=== PATIENT | female | born 1950 | race Caucasian/White ===

== ENCOUNTER 2022-01-19 23:56 | Inpatient (IN) | payer OTHER, MEDICAID ==
[~2022-01-19] VITALS: Ht 165.1 cm; Wt 74.8 kg
[~2022-01-19 23:56] MED LIST: ATOR40TA70 PO; METF-874 MT; METO-411 PO; OMEP20CA14 PO
[2022-01-20] MEDS ORDERED: SODIUM CHLORIDE 0.9% 1,000 ML IV ONE ×2 (00:30→05:00)
[2022-01-20 01:03] LABS: HEMATOCRIT. 35.1 % (36.0-48.0); HEMOGLOBIN. 11.5 g/dL (12.0-16.0); MEAN CORPUSCULAR VOLUME 88.2 fL (81.0-99.0); MEAN PLATELET VOLUME 10.2 fl (7.4-10.4); PLATELET 246 x1000/uL (130-400); RED BLOOD CELL COUNT 3.98 mill/uL (4.2-5.4); RED CELL DISTRIBUTION WIDTH 15.5 % (11.6-14.6)
[2022-01-20 01:12] LABS: CHLORIDE 100 mEq/L (98-107)
[2022-01-20 01:21] LABS: BETA HYDROXYBUTYRATE 0.2 mMol/L (0.0-0.3)
[2022-01-20] MEDS ORDERED: CEFTRIAXONE 1 G PREMIX 50 ML IV ONE (05:45)
[2022-01-20] MEDS ORDERED: MORPHINE SULFATE 4 MG/ML CPJ (NOT FOR IM USE) IV ONE (05:45)
[2022-01-20 05:50] LABS: PLATELET ESTIMATE NORMAL
[2022-01-20 09:09] LABS: CLARITY URINE CLOUDY (CLEAR); COLOR URINE DARK YELLOW (YELLOW); KETONES URINE TRACE (NEGATIVE); LEUKOCYTE ESTERASE URINE 1+ (NEGATIVE); NITRITE URINE POSITIVE (NEGATIVE); OCCULT BLOOD URINE 2+ (NEGATIVE); PH URINE 5.5 (4.5-8.0); PROTEIN URINE 3+ (NEGATIVE); SPECIFIC GRAVITY URINE 1.024 (1.005-1.030)
[2022-01-20] MEDS ORDERED: ONDANSETRON HCL 4MG/2ML INJ IV PRN (11:15)
[2022-01-20] MEDS ORDERED: NALOXONE HCL 0.4MG/ML VIAL IV PRN (11:30)
[2022-01-20] MEDS ORDERED: DEXTROSE 50% WATER 50ML SYRINGE IV PRN (11:45)
[2022-01-20] MEDS: BLOOD SUGAR DIAGNOSTIC STRIP TEST SCH ×3 (11:54→21:00)
[2022-01-20 12:00] VITALS: BP 168/79
[2022-01-20] MEDS: MORPHINE SULFATE 2 MG/ML CPJ (NOT FOR IM USE) IV PRN ×2 (12:03→18:37)
[2022-01-20] MEDS: ENOXAPARIN 40MG/0.4ML SYR SUBCUT SCH (12:04)
[2022-01-20] MEDS: CLONIDINE 0.1MG TABLET PO PRN (12:05)
[2022-01-20] MEDS: INSULIN LISPRO 100 UNITS/ML SUBCUT SCH ×3 (12:24→21:00)
[2022-01-20] MEDS: MEROPENEM 500 MG in SODIUM CHLORIDE 0.9% 50 ML IV SCH ×2 (14:20→22:25)
[2022-01-20 16:00] VITALS: BP 109/69
[2022-01-20] MEDS ORDERED: SITA1TAB2 PO (16:50)
[2022-01-20] MEDS: ACETAMINOPHEN 650MG/20.3ML UDC GT PRN (17:16)
[2022-01-20 17:25] VITALS: BP 168/79
[2022-01-20 20:00] VITALS: BP 108/75
[2022-01-21] VITALS: BP 110/80
[2022-01-21 04:00] VITALS: BP 120/70
[2022-01-21] MEDS: MEROPENEM 500 MG in SODIUM CHLORIDE 0.9% 50 ML IV SCH ×2 (05:26→17:01)
[2022-01-21] MEDS: BLOOD SUGAR DIAGNOSTIC STRIP TEST SCH ×4 (05:27→20:48)
[2022-01-21] MEDS: INSULIN LISPRO 100 UNITS/ML SUBCUT SCH ×4 (07:40→20:48)
[2022-01-21] MEDS: ENOXAPARIN 40MG/0.4ML SYR SUBCUT SCH (11:29)
[2022-01-21] MEDS ORDERED: KETOROLAC 15MG/ML VIAL IV STA (15:05)
[2022-01-21] MEDS: MEROPENEM 1000MG in NORMAL SALINE 100ML IV SCH (16:00)
[2022-01-21] MEDS: PANTOPRAZOLE SODIUM 40 MG/VIAL IV SCH (17:01)
[2022-01-21 17:04] LABS: CHLORIDE 107 mEq/L (98-107)
[2022-01-21 17:05] LABS: HEMATOCRIT. 32.3 % (36.0-48.0); HEMOGLOBIN. 10.7 g/dL (12.0-16.0); MEAN CORPUSCULAR HEMOGLOBIN 29.2 pg (28.0-32.0); MEAN CORPUSCULAR VOLUME 87.9 fL (81.0-99.0); MEAN PLATELET VOLUME 10.6 fl (7.4-10.4); PLATELET 181 x1000/uL (130-400); RED BLOOD CELL COUNT 3.68 mill/uL (4.2-5.4); RED CELL DISTRIBUTION WIDTH 15.7 % (11.6-14.6)
[2022-01-21] MEDS: KETOROLAC 15MG/ML VIAL IV SCH ×2 (17:25→20:56)
[2022-01-21 18:33] LABS: PLATELET ESTIMATE NORMAL
[2022-01-21 20:00] VITALS: BP 128/67
[2022-01-22] VITALS: BP 139/70
[2022-01-22 04:00] VITALS: BP 159/78
[2022-01-22] MEDS: KETOROLAC 15MG/ML VIAL IV SCH ×3 (05:01→21:18)
[2022-01-22] MEDS: MEROPENEM 1000MG in NORMAL SALINE 100ML IV SCH ×2 (05:04→17:37)
[2022-01-22] MEDS: BLOOD SUGAR DIAGNOSTIC STRIP TEST SCH ×4 (05:43→21:00)
[2022-01-22] MEDS: INSULIN LISPRO 100 UNITS/ML SUBCUT SCH ×4 (05:45→21:00)
[2022-01-22] MEDS: PANTOPRAZOLE SODIUM 40 MG/VIAL IV SCH (10:53)
[2022-01-22] MEDS: ACETAMINOPHEN 650MG/20.3ML UDC GT PRN ×2 (10:54→21:28)
[2022-01-22 11:54] LABS: HEMATOCRIT. 31.8 % (36.0-48.0); HEMOGLOBIN. 10.7 g/dL (12.0-16.0); MEAN CORPUSCULAR HEMOGLOBIN 29.1 pg (28.0-32.0); MEAN CORPUSCULAR VOLUME 86.7 fL (81.0-99.0); PLATELET 178 x1000/uL (130-400); RED BLOOD CELL COUNT 3.67 mill/uL (4.2-5.4); RED CELL DISTRIBUTION WIDTH 15.8 % (11.6-14.6)
[2022-01-22] MEDS: ENOXAPARIN 40MG/0.4ML SYR SUBCUT SCH (12:54)
[2022-01-22 13:40] LABS: CHLORIDE 107 mEq/L (98-107)
[2022-01-22 16:42] LABS: PLATELET ESTIMATE NORMAL
[2022-01-22 20:00] VITALS: BP 155/55
[2022-01-23] VITALS: BP 146/66
[2022-01-23 04:00] VITALS: BP 151/43
[2022-01-23] MEDS: MEROPENEM 1000MG in NORMAL SALINE 100ML IV SCH ×2 (05:20→17:15)
[2022-01-23] MEDS: KETOROLAC 15MG/ML VIAL IV SCH ×3 (05:20→21:58)
[2022-01-23] MEDS: BLOOD SUGAR DIAGNOSTIC STRIP TEST SCH ×4 (05:20→20:24)
[2022-01-23] MEDS: INSULIN LISPRO 100 UNITS/ML SUBCUT SCH ×4 (05:21→20:24)
[2022-01-23 07:46] VITALS: BP 122/52
[2022-01-23] MEDS: PANTOPRAZOLE SODIUM 40 MG/VIAL IV SCH (09:26)
[2022-01-23] MEDS: ENOXAPARIN 40MG/0.4ML SYR SUBCUT SCH ×2 (12:00→12:49)
[2022-01-23 12:41] VITALS: BP 153/57
[2022-01-23] MEDS: ACETAMINOPHEN 650MG/20.3ML UDC GT PRN (12:49)
[2022-01-23] MEDS ORDERED: LIDOCAINE HCL 1% 10 MG/ML 10ML VIAL ONE (15:03)
[2022-01-23 16:00] VITALS: BP 110/64
[2022-01-23 16:51] LABS: BASOPHILS % 0.4 % (0.0-2.0); EOSINOPHILS % 1.9 % (0.0-5.0); HEMATOCRIT. 33.2 % (36.0-48.0); HEMOGLOBIN. 11.2 g/dL (12.0-16.0); MEAN CORPUSCULAR HEMOGLOBIN 29.2 pg (28.0-32.0); MEAN CORPUSCULAR VOLUME 86.4 fL (81.0-99.0); MEAN PLATELET VOLUME 9.9 fl (7.4-10.4); MONOCYTES % 7.8 % (2.0-8.0); NEUTROPHILS % 80.9 % (40.0-76.0); PLATELET 252 x1000/uL (130-400); RED BLOOD CELL COUNT 3.84 mill/uL (4.2-5.4); RED CELL DISTRIBUTION WIDTH 15.7 % (11.6-14.6)
[2022-01-23 17:09] LABS: CHLORIDE 106 mEq/L (98-107)
[2022-01-23 20:00] VITALS: BP 139/75
[2022-01-23] MEDS ORDERED: AMIKACIN SULFATE 500 MG in SODIUM CHLORIDE 0.9% 100 ML IV NR (20:00)
[2022-01-23] MEDS ORDERED: POTASSIUM CHLORIDE 20MEQ TABLET SR PO NR (21:00)
[2022-01-24] VITALS: BP 152/54
[2022-01-24 04:00] VITALS: BP 151/74
[2022-01-24] MEDS: MEROPENEM 1000MG in NORMAL SALINE 100ML IV SCH ×2 (05:12→17:43)
[2022-01-24] MEDS: KETOROLAC 15MG/ML VIAL IV SCH ×2 (05:13→13:43)
[2022-01-24] MEDS: BLOOD SUGAR DIAGNOSTIC STRIP TEST SCH ×4 (05:13→21:00)
[2022-01-24] MEDS: INSULIN LISPRO 100 UNITS/ML SUBCUT SCH ×4 (05:45→21:00)
[2022-01-24 08:00] VITALS: BP 148/60
[2022-01-24] MEDS: PANTOPRAZOLE SODIUM 40 MG/VIAL IV SCH (08:45)
[2022-01-24 12:11] VITALS: BP 173/72
[2022-01-24] MEDS: CLONIDINE 0.1MG TABLET PO PRN (13:43)
[2022-01-24 16:00] VITALS: BP 115/60
[2022-01-25] VITALS: BP 140/45
[2022-01-25 04:00] VITALS: BP 111/60
[2022-01-25] MEDS: MEROPENEM 1000MG in NORMAL SALINE 100ML IV SCH ×2 (06:27→18:01)
[2022-01-25] MEDS: INSULIN LISPRO 100 UNITS/ML SUBCUT SCH ×3 (07:40→17:40)
[2022-01-25] MEDS: BLOOD SUGAR DIAGNOSTIC STRIP TEST SCH ×3 (07:47→17:53)
[2022-01-25 08:00] VITALS: BP 153/72
[2022-01-25 08:29] LABS: BASOPHILS % 0.4 % (0.0-2.0); EOSINOPHILS % 3.9 % (0.0-5.0); HEMATOCRIT. 28.3 % (36.0-48.0); HEMOGLOBIN. 9.5 g/dL (12.0-16.0); LYMPHOCYTES % 19.3 % (20.0-50.0); MEAN CORPUSCULAR VOLUME 86.3 fL (81.0-99.0); MEAN PLATELET VOLUME 9.1 fl (7.4-10.4); MONOCYTES % 11.2 % (2.0-8.0); NEUTROPHILS % 65.2 % (40.0-76.0); PLATELET 327 x1000/uL (130-400); RED BLOOD CELL COUNT 3.28 mill/uL (4.2-5.4); RED CELL DISTRIBUTION WIDTH 15.8 % (11.6-14.6)
[2022-01-25 08:46] LABS: CHLORIDE 106 mEq/L (98-107)
[2022-01-25] MEDS: PANTOPRAZOLE SODIUM 40 MG/VIAL IV SCH (09:16)
[2022-01-25 12:00] VITALS: BP 155/65
[2022-01-25] MEDS: ENOXAPARIN 40MG/0.4ML SYR SUBCUT SCH (12:40)
[2022-01-25 16:00] VITALS: BP 179/66
[2022-01-25] MEDS: CLONIDINE 0.1MG TABLET PO PRN (16:38)
[2022-01-25 17:00] VITALS: BP 158/65
[2022-01-26] MEDS ORDERED: FAMOTIDINE 20MG TABLET PO SCH ×2 (09:00)
== END 2022-01-25 19:30 | disposition home health service (06) | DRG 872 ==
LOC: ER 23:56 → 8WST 01-20 05:32 → ENRESERV 01-20 08:37
PROVIDERS: ADMIT Internal Medicine; ATTEND Internal Medicine
PROC: 02HV33Z Insertion of Infusion Device into Superior Vena Cava, Percutaneous Approach (ICD-10-PCS; principal; 2022-01-23)
PROC: B548ZZA Ultrasonography of Superior Vena Cava, Guidance (ICD-10-PCS; 2022-01-23)
PROC: B518ZZA Fluoroscopy of Superior Vena Cava, Guidance (ICD-10-PCS; 2022-01-23)
DX: A41.59 Other Gram-negative sepsis (principal); N12 Tubulo-interstitial nephritis, not specified as acute or chronic; N39.0 Urinary tract infection, site not specified; Z16.12 Extended spectrum beta lactamase (ESBL) resistance; I10 Essential (primary) hypertension; E11.65 Type 2 diabetes mellitus with hyperglycemia; B96.89 Other specified bacterial agents as the cause of diseases classified elsewhere; Z20.822 Contact with and (suspected) exposure to COVID-19; K21.9 Gastro-esophageal reflux disease without esophagitis; E78.00 Pure hypercholesterolemia, unspecified; Z86.19 Personal history of other infectious and parasitic diseases; Z87.442 Personal history of urinary calculi; Z93.6 Other artificial openings of urinary tract status; W01.0XXA Fall on same level from slipping, tripping and stumbling without subsequent striking against object, initial encounter; Y93.89 Activity, other specified; Y92.89 Other specified places as the place of occurrence of the external cause; Y99.8 Other external cause status; Z96.0 Presence of urogenital implants
CPT/HCPCS: 36415; 36573; 71045; 74176; 76770; 80048; 80053; 81003; 82010; 82962; 83036; 85025; 87077; 87186; 87426; 93005; 99285; C1725; C9113; J0278; J0696; J1650; J1815; J1885; J2185; J2270; J2405; J3490; J7030; J7050

== ENCOUNTER 2024-06-15 07:28 | Emergency (ER) | payer MEDICARE, MEDICAID ==
[~2024-06-15] VITALS: Ht 162.6 cm; Wt 70.0 kg
[~2024-06-15 07:28] MED LIST changes: +METF-1150 MT; -METF-874 MT; +SITA1TAB2 PO
[2024-06-15 07:37] VITALS: O2SAT 98
[2024-06-15 07:45] VITALS: TEMP 36.83628
[2024-06-15 08:23] LABS: BASOPHILS % 0.8 % (0.0-2.0); EOSINOPHILS % 1.5 % (0.0-5.0); HEMATOCRIT. 40.2 % (36.0-48.0); HEMOGLOBIN. 13.4 g/dL (12.0-16.0); LYMPHOCYTES % 23.7 % (20.0-50.0); MEAN CORPUSCULAR HEMOGLOBIN 29.6 pg (28.0-32.0); MEAN CORPUSCULAR HGB CONC 33.4 g/dL (31.0-37.0); MEAN CORPUSCULAR VOLUME 88.7 fL (81.0-99.0); MEAN PLATELET VOLUME 9.5 fl (7.4-10.4); MONOCYTES % 5.7 % (2.0-8.0); NEUTROPHILS % 68.3 % (40.0-76.0); PLATELET 286 x1000/uL (130-400); RED BLOOD CELL COUNT 4.53 mill/uL (4.2-5.4); RED CELL DISTRIBUTION WIDTH 14.1 % (11.6-14.6); WHITE BLOOD COUNT 7.5 x1000/uL (4.5-11.0)
[2024-06-15 08:33] LABS: CHLORIDE 108 mEq/L (98-107); POTASSIUM 3.8 mEq/L (3.5-5.1); SODIUM 143 mEq/L (136-145)
[2024-06-15 08:34] LABS: CARBON DIOXIDE 26 mEq/L (21-32)
[2024-06-15 08:39] LABS: CREATININE 0.5 mg/dL (0.6-1.0); GLUCOSE 188 mg/dL (70-105)
[2024-06-15 08:40] LABS: UREA NITROGEN BLOOD 10 mg/dL (9-23)
[2024-06-15 08:41] LABS: ALANINE AMINOTRANSFERASE 11 IU/L (10-49); ALBUMIN 4.1 g/dL (3.2-4.8); ASPARTATE AMINOTRANSFERASE 27 IU/L (<34)
[2024-06-15 08:42] LABS: BILIRUBIN DIRECT 0.1 mg/dL (<=3.0); BILIRUBIN TOTAL 0.4 mg/dL (0.1-1.0); PROTEIN TOTAL 6.7 g/dL (6.0-8.3)
[2024-06-15] MEDS ORDERED: T3 PO (09:48)
[2024-06-15] MEDS ORDERED: IBUP-2028 MT (09:48)
[2024-06-15] MEDS: KETOROLAC 30MG/ML VIAL IV ONE (09:52)
[2024-06-15 10:15] VITALS: BP 164/81; PULSE 72; RESP 16; O2SAT 100
== END 2024-06-15 10:25 | disposition home or self-care (01) ==
LOC: ER 07:28
DX: K80.20 Calculus of gallbladder without cholecystitis without obstruction (principal); E11.9 Type 2 diabetes mellitus without complications; I10 Essential (primary) hypertension; Z79.899 Other long term (current) drug therapy
CPT/HCPCS: 99285; 96374; 76705; 71045; 80076; 80048; 83690; 85025; 36415; 93005; J1885